=== PATIENT | male | born 1960 | race Caucasian/White ===

== ENCOUNTER 2016-09-29 11:28 | Inpatient (IN) | payer MEDICARE ==
[~2016-09-29] VITALS: Ht 172.7 cm; Wt 66.9 kg
[~2016-09-29 11:28] MED LIST: CEPHALEXIN500 M1 PO; DALIRESP500 MCG PO; IPRATROPIUM BROM3 M1 IH; LEVAQUIN 750MG750 M1 PO; NO HOME MEDICATIONS; PREDNISONE10 MG PO; PROAIR HFA0.09 MG/AC IH; PROVENTIL0.09 MG/A1 IH; QVAR0.08 MG/AC IH; STIOLTO RESPIMAT4 GM IH; TUSS PO; VENTOLIN H0.09 MG/AC IH; VENTOLIN0.09 MG IH
[2016-09-29 11:45] VITALS: BP 104/78; PULSE 106; TEMP 97.6
[2016-09-29 12:29] LABS: ARTERIAL BLD GAS O2 SATURATION 94.8 % (92-100); ARTERIAL BLD GAS TCO2 CT 27.6; ARTERIAL BLOOD GAS BASE EXCESS 2.1 (-2-2); ARTERIAL BLOOD GAS HCO3 26.4 meq/L (22-26); ARTERIAL BLOOD GAS PO2 76.8 mmHg (80-100); ARTERIAL BLOOD GAS pH 7.44 (7.35-7.45); OXYHEMOGLOBIN 91.4 %
[2016-09-29] MEDS ORDERED: THEO-DUR 3300 MG/TAB PO (12:29)
[2016-09-29 12:31] LABS: BASO # 0.1 (0.0-0.2); BASO % 0.4 % (0.0-2.0); EOS # 0.3 (0.0-0.7); EOS % 2.1 % (0-4.0); GRAN # 8.6 (1.4-6.5); GRAN % 74.3 % (42.2-75.2); HEMOGLOBIN 15.4 g/dl (13.5-18.0); LYMPH # 1.7 (1.2-3.4); LYMPH % 14.4 % (20.0-51.0); MEAN CELL VOLUME 89 fl (80.0-100.0); MEAN CORPUSCULAR HEMOGLOBIN 30 pg (27.0-31.0); MEAN CORPUSCULAR HGB CONC 34 g/dl (33.0-37.0); MEAN PLATELET VOLUME 8.7 fl (7.4-10.4); MONO # 0.9 (0.1-0.6); PLATELET COUNT 346 K/mm3 (130-400); RED BLOOD COUNT 5.18 M/mm3 (4.20-5.60); REDCELL DISTRIBUTION WIDTH-CV 14.1 % (11.5-14.5); WHITE BLOOD COUNT 11.6 K/mm3 (4.8-10.8)
[2016-09-29 12:34] LABS: ALLEN TEST YES; ALLENS TEST RESULT PASS; ATS? YES
[2016-09-29 12:44] LABS: ADJUSTED CALCIUM 9.5 mg/dL (8.4-10.2); ALANINE AMINOTRANSFERASE 23 U/L (21-72); ALBUMIN 3.7 gm/dL (3.5-5.0); ALKALINE PHOSPHATASE 101 U/L (50-136); ANION GAP 9 mmol/L (7-16); BILIRUBIN,TOTAL 0.6 mg/dL (0.0-1.0); BLOOD UREA NITROGEN 11 mg/dL (9-20); CALCIUM 9.3 mg/dL (8.4-10.2); CARBON DIOXIDE 27 mmol/L (22-30); CHLORIDE 102 mmol/L (98-107); CREATININE, serum 0.72 mg/dL (0.66-1.25); GLUCOSE 83 mg/dL (74-106); POTASSIUM 3.6 mmol/L (3.4-5.0); SODIUM 137 mmol/L (137-145); TOTAL PROTEIN 6.8 gm/dL (6.4-8.2)
[2016-09-29 12:55] LABS: B-TYPE NATRIURETIC PEPTIDE 95 pg/mL (0-125); TROPONIN-I < 0.012 ng/mL (0.000-0.034)
[2016-09-29 16:49] VITALS: BP 113/68; PULSE 106; TEMP 99.1
[2016-09-29 21:38] VITALS: BP 108/66; PULSE 74; TEMP 97.7
[2016-09-30 00:04] VITALS: BP 111/62; PULSE 96; TEMP 97.5
[2016-09-30 03:51] VITALS: BP 116/69; PULSE 103; TEMP 97.6
[2016-09-30 07:49] LABS: HEMATOCRIT 40.7 % (42.0-52.0); HEMOGLOBIN 13.7 g/dl (13.5-18.0); MEAN CELL VOLUME 89 fl (80.0-100.0); MEAN CORPUSCULAR HEMOGLOBIN 30 pg (27.0-31.0); MEAN CORPUSCULAR HGB CONC 34 g/dl (33.0-37.0); MEAN PLATELET VOLUME 9.3 fl (7.4-10.4); PLATELET COUNT 314 K/mm3 (130-400); REDCELL DISTRIBUTION WIDTH-CV 14.1 % (11.5-14.5); WHITE BLOOD COUNT 11.5 K/mm3 (4.8-10.8)
[2016-09-30 07:51] LABS: CALCIUM 9.2 mg/dL (8.4-10.2); CREATININE, serum 0.71 mg/dL (0.66-1.25)
[2016-09-30 07:54] LABS: ADD PATHOLOGY DIFF REVIEW NO
[2016-09-30 08:28] VITALS: BP 116/60; PULSE 107; TEMP 97.7
[2016-09-30 09:11] LABS: BAND 22 % (0-10); NEUTROPHILS 72 % (42.0-75.2); PLATELET ESTIMATE NORMAL (NORMAL); TOTAL CELLS COUNTED 100
[2016-09-30 12:20] VITALS: BP 112/64; PULSE 102; TEMP 98
[2016-09-30 16:23] VITALS: BP 110/65; PULSE 78; TEMP 98.4
[2016-09-30 20:17] VITALS: BP 109/59; PULSE 98; TEMP 97.6
[2016-10-01 00:01] VITALS: BP 107/62; PULSE 84; TEMP 98.5
[2016-10-01 04:08] VITALS: BP 106/62; PULSE 100; TEMP 98.3
[2016-10-01 07:48] VITALS: BP 105/58; PULSE 104; TEMP 98.3
[2016-10-01 12:46] VITALS: BP 112/55; PULSE 95; TEMP 98.4
[2016-10-01 16:24] VITALS: BP 111/63; PULSE 94; TEMP 98.4
[2016-10-01 21:15] VITALS: BP 114/61; PULSE 103; TEMP 97.3
[2016-10-02 00:14] VITALS: BP 115/66; PULSE 84; TEMP 98.4
[2016-10-02 07:29] VITALS: BP 115/59; PULSE 101; TEMP 97.4
[2016-10-02 13:05] VITALS: BP 128/67; PULSE 104; TEMP 97.7
[2016-10-02 16:03] VITALS: BP 125/71; PULSE 82; TEMP 97.6
[2016-10-02 21:01] VITALS: BP 124/68; PULSE 101; TEMP 97.8
[2016-10-03 01:27] VITALS: BP 102/58; PULSE 92; TEMP 97.8
[2016-10-03 05:44] VITALS: BP 115/75; PULSE 75; TEMP 98.2
[2016-10-03 10:04] VITALS: BP 120/67; PULSE 100; TEMP 98.3
[2016-10-03 12:43] VITALS: BP 120/71; PULSE 102; TEMP 98
[2016-10-03 15:46] VITALS: BP 118/66; PULSE 103; TEMP 98.3
[2016-10-03 21:17] VITALS: BP 132/68; PULSE 107; TEMP 97.7
[2016-10-04 00:36] VITALS: BP 124/67; PULSE 103; TEMP 98.6
[2016-10-04 03:25] VITALS: BP 129/70; PULSE 88; TEMP 98.1
[2016-10-04 07:20] VITALS: BP 119/68; PULSE 79; TEMP 97
[2016-10-04] MEDS ORDERED: MUCINEX DM 30 M1 TE1 PO (09:16)
[2016-10-04] MEDS ORDERED: PROTONIX 40MG T40 MG PO (09:17)
[2016-10-04] MEDS ORDERED: FLONASE NASAL S16 GM NS (09:17)
[2016-10-04] MEDS ORDERED: PREDNISONE10 MG PO (09:19)
== END 2016-10-04 10:52 | disposition home or self-care (01) | DRG 189 ==
LOC: MEDICAL 11:31
PROVIDERS: Physician Assistant
DX: J96.21 Acute and chronic respiratory failure with hypoxia (principal); J44.1 Chronic obstructive pulmonary disease with (acute) exacerbation; R07.89 Other chest pain; I27.2 Other secondary pulmonary hypertension; Z87.891 Personal history of nicotine dependence
CPT/HCPCS: 99223-AI; 99232-AI; 99233-AI; 99239; J1650; J1956; J2930; J7512

== ENCOUNTER 2017-10-03 12:22 | Inpatient (IN) | payer MEDICARE ==
[2017-10-03] VITALS (206 sets, daily range): BP systolic 115–130; BP diastolic 78–86; PULSE 97–98; TEMP 98.1–99.9; O2SAT 94–100
[~2017-10-03] VITALS: Ht 172.7 cm; Wt 72.4 kg
[~2017-10-03 12:22] MED LIST changes: +FLONASE NASAL S16 GM NS; +MUCINEX DM 30 M1 TE1 PO; +PROTONIX 40MG T40 MG PO; +THEO-DUR 3300 MG/TAB PO
[2017-10-03] MEDS ORDERED: VENTOLIN0.09 MG INH (12:37)
[2017-10-03 12:43] LABS: ARTERIAL BLD GAS O2 SATURATION 95.1 % (92-100); ARTERIAL BLD GAS TCO2 CT 24.9; ARTERIAL BLOOD GAS BASE EXCESS 0.3 (-2-2); ARTERIAL BLOOD GAS HCO3 23.9 meq/L (22-26); ARTERIAL BLOOD GAS PCO2 35.6 mmHg (35-45); ARTERIAL BLOOD GAS PO2 73.5 mmHg (80-100); ARTERIAL BLOOD GAS pH 7.44 (7.35-7.45)
[2017-10-03] MEDS ORDERED: BREO INH (12:45)
[2017-10-03] MEDS ORDERED: INCRUSE EL62.5 MCG/A INH (12:45)
[2017-10-03] MEDS ORDERED: BREO ELLIPTA INH (12:47)
[2017-10-03 12:51] LABS: HEMATOCRIT 46.8 % (42.0-52.0); HEMOGLOBIN 15.9 g/dl (13.5-18.0); MEAN CELL VOLUME 85 fl (80.0-100.0); MEAN CORPUSCULAR HEMOGLOBIN 29 pg (27.0-31.0); MEAN CORPUSCULAR HGB CONC 34 g/dl (33.0-37.0); MEAN PLATELET VOLUME 9.3 fl (7.4-10.4); PLATELET COUNT 316 K/mm3 (130-400); RED BLOOD COUNT 5.49 M/mm3 (4.20-5.60); REDCELL DISTRIBUTION WIDTH-CV 13.9 % (11.5-14.5)
[2017-10-03 13:10] LABS: CALCIUM 9.3 mg/dL (8.4-10.2); CREATININE, serum 0.86 mg/dL (0.66-1.25); POTASSIUM 4.1 mmol/L (3.4-5.0); TOTAL PROTEIN 7.2 gm/dL (6.4-8.2)
[2017-10-03 13:24] LABS: BAND 16 % (0-10); BASOPHIL 2 % (0-2); C-REACTIVE PROTEIN 15.6 mg/dL (0.0-0.9); LYMPHOCYTE 6 % (20.0-51.0); NEUTROPHILS 71 % (42.0-75.2); PLATELET ESTIMATE NORMAL (NORMAL)
[2017-10-03] MEDS ORDERED: PROTONIX 40MG T40 MG PO (16:41)
[2017-10-03 16:49] LABS: ARTERIAL BLD GAS O2 SATURATION 95.2 % (92-100); ARTERIAL BLD GAS TCO2 CT 25.5; ARTERIAL BLOOD GAS BASE EXCESS -0.2 (-2-2); ARTERIAL BLOOD GAS HCO3 24.3 meq/L (22-26); ARTERIAL BLOOD GAS PCO2 39.3 mmHg (35-45); ARTERIAL BLOOD GAS PO2 78.9 mmHg (80-100); ARTERIAL BLOOD GAS pH 7.41 (7.35-7.45)
[2017-10-04] VITALS (830 sets, daily range): BP systolic 106–122; BP diastolic 67–82; PULSE 73–90; TEMP 97–98.2; O2SAT 86–100
[2017-10-04 06:12] LABS: HEMATOCRIT 43.7 % (42.0-52.0); HEMOGLOBIN 14.8 g/dl (13.5-18.0); MEAN CELL VOLUME 86 fl (80.0-100.0); MEAN CORPUSCULAR HEMOGLOBIN 29 pg (27.0-31.0); MEAN CORPUSCULAR HGB CONC 34 g/dl (33.0-37.0); MEAN PLATELET VOLUME 9.4 fl (7.4-10.4); PLATELET COUNT 276 K/mm3 (130-400); RED BLOOD COUNT 5.06 M/mm3 (4.20-5.60); REDCELL DISTRIBUTION WIDTH-CV 14.1 % (11.5-14.5)
[2017-10-04 06:23] LABS: CREATININE, serum 0.79 mg/dL (0.66-1.25)
[2017-10-04 06:42] LABS: BAND 26 % (0-10); LYMPHOCYTE 2 % (20.0-51.0); NEUTROPHILS 67 % (42.0-75.2); PLATELET ESTIMATE NORMAL (NORMAL)
[2017-10-05] VITALS (340 sets, daily range): BP systolic 98–116; BP diastolic 61–78; PULSE 63–90; TEMP 97.1–98.5; O2SAT 67–100
[2017-10-06 03:40] VITALS: BP 108/67; PULSE 63; TEMP 97.5
[2017-10-06 07:42] LABS: HEMATOCRIT 40.6 % (42.0-52.0); HEMOGLOBIN 13.4 g/dl (13.5-18.0); MEAN CELL VOLUME 88 fl (80.0-100.0); MEAN CORPUSCULAR HEMOGLOBIN 29 pg (27.0-31.0); MEAN CORPUSCULAR HGB CONC 33 g/dl (33.0-37.0); MEAN PLATELET VOLUME 9.8 fl (7.4-10.4); PLATELET COUNT 321 K/mm3 (130-400); RED BLOOD COUNT 4.61 M/mm3 (4.20-5.60); REDCELL DISTRIBUTION WIDTH-CV 14.3 % (11.5-14.5)
[2017-10-06 07:52] LABS: CALCIUM 8.7 mg/dL (8.4-10.2); CREATININE, serum 0.74 mg/dL (0.66-1.25); MAGNESIUM 2.2 mg/dL (1.6-2.3); POTASSIUM 3.9 mmol/L (3.4-5.0)
[2017-10-06 07:54] VITALS: BP 120/69; PULSE 91; TEMP 97.8
[2017-10-06 08:11] LABS: BAND 11 % (0-10); LYMPHOCYTE 9 % (20.0-51.0); NEUTROPHILS 76 % (42.0-75.2); PLATELET ESTIMATE NORMAL (NORMAL)
[2017-10-06 11:01] VITALS: BP 123/66; PULSE 87; TEMP 97.3
[2017-10-06] MEDS ORDERED: ZITHROMAX500 M2 PO (12:31)
[2017-10-06] MEDS ORDERED: OMNICEF 300MG300 MG PO (12:32)
[2017-10-06] MEDS ORDERED: PREDNISONE10 MG PO (13:13)
== END 2017-10-06 11:52 | disposition home or self-care (01) | DRG 871 ==
LOC: COL.ER 12:22 → ICU 15:52 → MEDICAL 10-05 21:50
PROVIDERS: Emergency Medicine; Internal Medicine; Physician Assistant
DX: A41.9 Sepsis, unspecified organism (principal); J18.9 Pneumonia, unspecified organism; J96.01 Acute respiratory failure with hypoxia; J44.0 Chronic obstructive pulmonary disease with (acute) lower respiratory infection; Z66 Do not resuscitate; J44.1 Chronic obstructive pulmonary disease with (acute) exacerbation; E87.1 Hypo-osmolality and hyponatremia; I50.32 Chronic diastolic (congestive) heart failure; E44.0 Moderate protein-calorie malnutrition; Z87.891 Personal history of nicotine dependence; I27.20 Pulmonary hypertension, unspecified
CPT/HCPCS: 99223-AI; 99233-AI; J0696; J1650; J2060; J2920; J2930; J7030; J7512

== ENCOUNTER 2019-12-04 05:26 | Day surgery (SDC) | payer MEDICARE ==
[2019-12-04] VITALS (7 sets, daily range): BP systolic 90–129; BP diastolic 65–83; PULSE 56–92; TEMP 97.9–98.5
[~2019-12-04] VITALS: Ht 172.7 cm; Wt 68.5 kg
[~2019-12-04 05:26] MED LIST changes: +BREO ELLIPTA INH; +BREO INH; +INCRUSE EL62.5 MCG/A INH; +OMNICEF 300MG300 MG PO; +VENTOLIN0.09 MG INH; +ZITHROMAX500 M2 PO
[2019-12-04] MEDS ORDERED: ZOCOR 20MG20 MG PO (05:50)
[2019-12-04] MEDS ORDERED: BREO ELLIPTA 21 EACH IH (05:50)
[2019-12-04] MEDS ORDERED: INCRUSE EL62.5 MCG/A IH (05:50)
[2019-12-04] MEDS ORDERED: AMBIEN 5MG TABLE5 MG PO (05:50)
[2019-12-04] MEDS ORDERED: ATROVENT INHALE14 GM IH (05:51)
--- NOTE | 2019-12-04 06:44 | NUR ---
Patient to the PACU at this time for block with anesthesia.
[2019-12-04] MEDS ORDERED: NORCO 325 MG-51 TAB PO (08:18)
--- NOTE | 2019-12-04 08:20 | NUR ---
Patient arrives to [facility] [address] via cart, accompanied by POLITICAL REPORTER and AIR FORCE SENIOR OFFICER. He is drowsy, but easily awakens to voice and talks with staff. He denies any pain or nausea. He has a clean/dry/intact dressing on his operative site. Monitoring is applied - VSS and WNL on room air. Lights dimmed for comfort. Will continue to monitor.
--- NOTE | 2019-12-04 08:35 | NUR ---
Patient is resting in his room. Offered and receives juice and pudding to eat. States he has "discomfort" at his operative site. Will continue to monitor.
--- NOTE | 2019-12-04 08:50 | NUR ---
Patient given [place] for pain. VSS on room air. Denies nausea. Tolerating PO well.
--- NOTE | 2019-12-04 09:30 | NUR ---
VSS on room air. Patient ambulates to the restroom with standby assist of staff. He voids a large amount of clear/yellow urine without difficulty. His operative site dressing remains clean/dry/intact. No swelling noted at this time.
--- NOTE | 2019-12-04 09:50 | NUR ---
Patient complains of pain 8. He has received PO norco for pain. He is now given 2mg IV Morphine for pain. Will continue to monitor.
--- NOTE | 2019-12-04 10:00 | NUR ---
Patient is resting comfortalby in his room. He now rates groin pain as a 3/10 and tolerable. VSS on room air. He states he feels ready to go home. His ride, Minerva, is called and is available for warehouse order picker at 1030.
--- NOTE | 2019-12-04 10:35 | NUR ---
1015 PIV is removed with catheter intact and hemostasis achieved. Surgical dressing remains clean/dry/intact, no swelling or hematoma noted. 1020 Discharge instructions are discussed with the patient. He denies any questions and verbalizes understanding. Dr. Hansen comes to the bedside to check on the patient and answer any further questions. Patient denies needs from Dr. Hansen at this time. Patient changes to his clothing independently. 1035 Patient is escorted to the exit via wheelchair by staff. His ride, Minerva, meets us at the ER entrance. He gets into the vehicle without difficulty and is discharged to home with ride at 1035.
== END 2019-12-04 10:35 | disposition home or self-care (01) ==
LOC: SDCO 05:26
DX: K40.90 Unilateral inguinal hernia, without obstruction or gangrene, not specified as recurrent (principal); J43.9 Emphysema, unspecified; Z20.828 Contact with and (suspected) exposure to other viral communicable diseases; Z79.899 Other long term (current) drug therapy; I50.9 Heart failure, unspecified; I27.20 Pulmonary hypertension, unspecified; Z87.891 Personal history of nicotine dependence; Z87.01 Personal history of pneumonia (recurrent); K21.9 Gastro-esophageal reflux disease without esophagitis
CPT/HCPCS: C1781; J0690; J2250; J2270; J2704; J3010; J7120

== ENCOUNTER → 2020-10-14 | Outpatient (CLI) | payer MEDICARE ==
[~2020-10-14] MED LIST changes: +AMBIEN 5MG TABLE5 MG PO; +ATROVENT INHALE14 GM IH; +BREO ELLIPTA 21 EACH IH; +INCRUSE EL62.5 MCG/A IH; +NORCO 325 MG-51 TAB PO; +ZOCOR 20MG20 MG PO
== END ==
LOC: COL.RAD 06:45
DX: Z12.2 Encounter for screening for malignant neoplasm of respiratory organs (principal); R91.8 Other nonspecific abnormal finding of lung field; Z87.891 Personal history of nicotine dependence

== ENCOUNTER → 2021-10-15 | Outpatient (CLI) | payer MEDICARE | LOC: COL.RAD 12:57 | DX: Z12.2 Encounter for screening for malignant neoplasm of respiratory organs (principal); J43.9 Emphysema, unspecified; Z87.891 Personal history of nicotine dependence ==